=== PATIENT | female | born 1960 ===

== ENCOUNTER 2016-09-29 08:50 | Emergency (ER) | payer OTHER ==
[2016-09-29 08:54] VITALS: BMI 34.5
[2016-09-29 08:59] VITALS: BP 140/83; PULSE 86; RESP 18; TEMP 98.3; O2SAT 99
--- NOTE | 2016-09-29 10:01 | RAD ---
PROCEDURE: Right Hip Radiographs. HISTORY: r/o fx COMPARISON: None. FINDINGS: BONES: Normal. No fracture. JOINTS: [id number] osteoarthritic changes. SOFT TISSUES: Normal. OTHER FINDINGS: None. IMPRESSION: No evidence of acute fracture or dislocation. [id number] osteoarthritic changes P
--- NOTE | 2016-09-29 10:07 | C.PDOC ---
History Of Present Illness 55 yr old female presents to the ER stating she slipped on something wet 2 days ago at a [employer] and now has pain to the right hip and right knee. Patient states she has been walking with a limp. Denies head injury, LOC, any prior symptoms before falling, nausea, vomiting, back pain, weakness or numbness. Time Seen by Provider: 09/29/16 09:15 Chief Complaint (Nursing): Lower Extremity Problem/Injury History Per: Patient History/Exam Limitations: no limitations Onset/Duration Of Symptoms: Days (2 days ago) Current Symptoms Are (Timing): Still Present Past Medical History Reviewed: Historical Data, Nursing Documentation, Vital Signs Vital Signs: Last Vital Signs Temp 98.3 F 09/29/16 08:57 Pulse 86 09/29/16 08:57 Resp 18 09/29/16 08:57 BP 140/83 09/29/16 08:57 Pulse Ox 99 09/29/16 11:21 - Medical History PMH: HTN Family History: States: No Known Family Hx - Social History Hx Alcohol Use: No Hx Substance Use: No - Immunization History Hx Tetanus Toxoid Vaccination: No Hx Influenza Vaccination: No Hx Pneumococcal Vaccination: No Review Of Systems Except As Marked, All Systems Reviewed And Found Negative. Gastrointestinal: Negative for: Nausea, Vomiting Musculoskeletal: Positive for: Other ((+) Right hip pain. Right knee pain ). Negative for: Back Pain Neurological: Negative for: Weakness, Numbness Physical Exam - Physical Exam Appears: Well, Non-toxic, No Acute Distress Skin: Warm, Dry, No Rash Head: Atraumatic, Normacephalic Oral Mucosa: Moist Neck: Normal, Normal ROM, No Midline Cervical Tenderness, No Paracervical Tenderness, Supple Chest: Symmetrical, No Tenderness Cardiovascular: Rhythm Regular, No Murmur Respiratory: Normal Breath Sounds, No Rales, No Rhonchi, No Stridor, No Wheezing Back: Normal Inspection, No CVA Tenderness Extremity: Normal ROM (Full ROM at the right knee and right hip. ), No Calf Tenderness, Other (Right Hip - Mild tenderness on the lateral aspect. Right Knee - Mild swelling and ecchymosis noted to the medial and anterior aspect of the knee. No pain with valgus stretch.) Pulses: Left Dorsalis Pedis: Normal, Right Dorsalis Pedis: Normal Neurological/Psych: Oriented x3, Normal Speech, Normal Motor, Normal Sensation, Normal Reflexes ED Course And Treatment O2 Sat by Pulse Oximetry: 99 - Other Rad X-Ray - Right Hip X-Ray: Viewed By Me, Read By Radiologist Interpretation: PROCEDURE: Right Hip Radiographs. HISTORY: r/o fx. COMPARISON: None. FINDINGS: BONES: Normal. No fracture. JOINTS: Mild-to- moderate osteoarthritic changes. SOFT TISSUES: Normal. OTHER FINDINGS: None. IMPRESSION: No evidence of acute fracture or dislocation. Mild-to- moderate osteoarthritic changes. X-Ray - Right Knee X-Ray: Viewed By Me, Read By Radiologist Interpretation: PROCEDURE: Right Knee Radiographs. HISTORY: r/o fx. COMPARISON: None. FINDINGS: BONES: Normal. No fracture. JOINTS: Normal. No osteoarthritis. JOINT EFFUSION: None. OTHER FINDINGS: None. IMPRESSION: No evidence of acute fracture or dislocation. Medical Decision Making Medical Decision Making: PLAN: * X-Ray - Right Knee, Right Hip * Motrin PO Disposition - Disposition Referrals: Kwesi Dueñas MD [Staff Provider] - Disposition: HOME/ ROUTINE Disposition Time: 11:00 Condition: GOOD Additional Instructions: Thank you for letting us take care of you today. Your provider was Dr. Wang. You were treated for knee and hip pain. The emergency medical care you received today was directed at your acute symptoms. If you were prescribed any medication, please fill it and take as directed. It may take several days for your symptoms to resolve. Return to the Emergency Department if your symptoms worsen, do not improve, or if you have any other problems. Please contact your doctor or call one of the physicians/clinics you have been referred to that are listed on the Patient Visit Information form that is included in your discharge packet. Bring any paperwork you were given at discharge with you along with any medications you are taking to your follow up visit. Our treatment cannot replace ongoing medical care by a primary care provider (PCP) outside of the emergency department. Thank you for allowing the [facility] team to be part of your care today. Follow up with your doctor in 3-4 days. Apply ice to the affective areas for the next 2-3 days and take ibuprofen as needed. Instructions: Knee Pain (ED), Hip Pain (ED) - Clinical Impression Clinical Impression: Knee contusion, Hip pain - Scribe Statement The provider has reviewed the documentation as recorded by the Scribe Syl Ashley Provider Attestation: All medical record entries made by the Inocencio were at my direction and personally dictated by me. I have reviewed the chart and agree that the record accurately reflects my personal performance of the history, physical exam, medical decision making, and the department course for this patient. I have also personally directed, reviewed, and agree with the discharge instructions and disposition.
--- NOTE | 2016-09-29 11:09 | RAD ---
PROCEDURE: Right Knee Radiographs. HISTORY: r/o fx COMPARISON: None. FINDINGS: BONES: Normal. No fracture. JOINTS: Normal. No osteoarthritis. JOINT EFFUSION: None. OTHER FINDINGS: None. IMPRESSION: No evidence of acute fracture or dislocation.
== END 2016-09-29 11:24 | disposition home or self-care (01) ==
LOC: C.ER 08:50
DX: S80.01XA Contusion of right knee, initial encounter (principal); M25.551 Pain in right hip; W01.0XXA Fall on same level from slipping, tripping and stumbling without subsequent striking against object, initial encounter; Y93.89 Activity, other specified; Y92.512 Supermarket, store or market as the place of occurrence of the external cause

== ENCOUNTER 2017-01-21 20:32 | Emergency (ER) | payer OTHER ==
[2017-01-21 20:33] VITALS: BMI 34.5
[2017-01-21 20:48] VITALS: BP 140/85; RESP 18; TEMP 98.2
--- NOTE | 2017-01-21 21:03 | C.PDOC ---
History Of Present Illness 56 yo female w/PMHx of OA, HTN, DM, come in for evaluation of Right sided lower back pain radiating down to Right thigh gradually worsen for past month after sustained mechanical fall. Pt reports, " slipped on floor, when twisted by [facility] Pt admits, was seen here in ED after the accident when xray of Right hip and knee performed and was normal. Pt describes pain as constant, aching and worse with movement. Otherwise, pt denies fever, chills, abd. pain, N/V, denies UTI sx, saddle anesthesia, incontinence, denies weakness, deformity, sensory or vascular deficits to B?L LEs. Ambulate to ED for evaluation, not in any apparent distress. Time Seen by Provider: 01/21/17 20:51 Chief Complaint (Nursing): Lower Extremity Problem/Injury History Per: Patient Onset/Duration Of Symptoms: Gradual Past Medical History Reviewed: Historical Data, Nursing Documentation, Vital Signs Vital Signs: Last Vital Signs Temp 98.2 F 01/21/17 20:45 Pulse 102 H 01/21/17 20:45 Resp 18 01/21/17 20:45 BP 140/85 01/21/17 20:45 Pulse Ox 97 01/21/17 21:48 - Medical History PMH: HTN Denies: Chronic Kidney Disease Surgical History: Cholecystectomy Family History: States: No Known Family Hx - Social History Hx Alcohol Use: No Hx Substance Use: No - Immunization History Hx Tetanus Toxoid Vaccination: No Hx Influenza Vaccination: No Hx Pneumococcal Vaccination: No Review Of Systems Except As Marked, All Systems Reviewed And Found Negative. Constitutional: Negative for: Fever, Chills Eyes: Negative for: Vision Change ENT: Negative for: Throat Pain Cardiovascular: Negative for: Chest Pain Gastrointestinal: Negative for: Nausea, Vomiting, Abdominal Pain, Diarrhea Genitourinary: Negative for: Dysuria, Frequency, Incontinence Musculoskeletal: Positive for: Back Pain. Negative for: Neck Pain Neurological: Negative for: Weakness, Numbness, Altered Mental Status, Headache , Dizziness Physical Exam - Physical Exam Appears: Well, Non-toxic, No Acute Distress Skin: Normal Color, Warm, Dry, No Rash, No Ecchymosis Eye(s): bilateral: PERRL Throat: No Erythema, No Exudate, No Drooling Neck: Supple Cardiovascular: Rhythm Regular Respiratory: No Decreased Breath Sounds, No Stridor, No Wheezing Gastrointestinal/Abdominal: Soft, No Tenderness, No Distention, No Guarding, No Rebound Back: No CVA Tenderness, No Vertebral Tenderness, Decreased ROM (L-spine due to pain), Paraspinal Tenderness (Right sided lumbar extend down to Right gluteus, no palpable deformity, no skin changes.) Extremity: Normal ROM, No Tenderness, No Pedal Edema, No Deformity, No Swelling Neurological/Psych: Oriented x3, Normal Speech, Normal Motor, Normal Sensation, Normal Reflexes ED Course And Treatment O2 Sat by Pulse Oximetry: 97 (RA) Pulse Ox Interpretation: Normal - CT Scan/US CT - Lumbar Spine Other Rad Studies (CT/US): Read By Radiologist, Radiology Report Reviewed CT/US Interpretation: EXAM: CT Lumbar Spine Without Intravenous Contrast. CLINICAL HISTORY: 56 years old, female; Pain; Low back pain; Additional info: Right back, right hip pain. TECHNIQUE: Axial computed tomography images of the lumbar spine without intravenous contrast. All CT scans. at this facility use one or more dose reduction techniques, viz.: automated exposure control; ma/ kV. adjustment per patient size (including targeted exams where dose is matched to indication; i.e. head);. or iterative reconstruction technique. Coronal and sagittal reformatted images were created and reviewed. COMPARISON: No relevant prior studies available. FINDINGS: Vertebrae: No acute fracture. Facet osteoarthrosis within lower lumbar spine. Discs/spinal canal/ neural foramina: No significant spinal stenosis. Soft tissues: Unremarkable. Gallbladder and bile ducts: Cholecystectomy. Adrenals: Mild hypertrophy of adrenal glands. Kidneys and ureters: Tiny RIGHT renal AML. Hypodense lesion with tiny peripheral calcification. within LEFT kidney, incompletely imaged. Reproductive: Hysterectomy. Other findings: Bone islands. IMPRESSION: 1. No fracture. If back pain persists, consider MRI for further evaluation. 2. LEFT kidney lesion, incompletely evaluated. Suggest nonemergent followup. 3. Incidental/non-acute findings are described above. Progress Note: On re-evaluation, pt is AAO#3, not in any apparent distress. PulseOx 99% RA. Head: AT/NC. Lungs: CTA B/L, BS equal B/L. ABd: Benign, (-) guarding, (-) rebound. Back: (-) CVA tenderness. Neurologicaly intact. Imaging review and appears without acute abnormalities. Pt has clinical findings c/w lumbar radiculopathy. Pt advised. ref. to F/u with PMD in 1-2 days for re-evaluation. Return to ED if any worsening or new changes. Disposition Counseled Patient/Family Regarding: Studies Performed, Diagnosis, Need For Followup, Rx Given - Disposition Referrals: Kwesi Dueñas MD [Staff Provider] - Disposition: HOME/ ROUTINE Disposition Time: 21:52 Condition: STABLE Additional Instructions: Avoid heavy lifting, bending forward, any physical activity for 1 week take pain medication as need for pain Follow up with PMD in 2-3 days for re-evaluation. Return to ED if any new changes. Prescriptions: diaZEpam [Valium] 5 mg PO HS #5 tab Methocarbamol [Robaxin] 500 mg PO TID #14 tab traMADol [Ultram] 50 mg PO TID #7 tab Instructions: Lumbar Radiculopathy (ED) Forms: [employer] (Honduran) - Clinical Impression Clinical Impression: Lumbar radiculopathy
[2017-01-21 21:23] LABS: RBC URINE 2 /hpf (0-3); URINE BACTERIA RARE (<OCC); URINE BILIRUBIN NEGATIVE (NEGATIVE); URINE BLOOD NEGATIVE (NEGATIVE); URINE COLOR Yellow (YELLOW); URINE GLUCOSE (UA) 3+ mg/dL (Normal); URINE KETONE NEGATIVE (NEGATIVE); URINE LEUKOCYTE ESTERASE NEG Leu/uL (Negative); URINE PROTEIN NEGATIVE (NEGATIVE); URINE UROBILINOGEN NORMAL mg/dL (0.2-1.0); WBC URINE 3 /hpf (0-5)
--- NOTE | 2017-01-21 21:42 | CT ---
EXAM: CT Lumbar Spine Without Intravenous Contrast CLINICAL HISTORY: 56 years old, female; Pain; Low back pain; Additional info: Right back, right hip pain TECHNIQUE: Axial computed tomography images of the lumbar spine without intravenous contrast. All CT scans at this facility use one or more dose reduction techniques, viz.: automated exposure control; ma/kV adjustment per patient size (including targeted exams where dose is matched to indication; i.e. head); or iterative reconstruction technique. Coronal and sagittal reformatted images were created and reviewed. COMPARISON: No relevant prior studies available. FINDINGS: Vertebrae: No acute fracture. Facet osteoarthrosis within lower lumbar spine. Discs/spinal canal/neural foramina: No significant spinal stenosis. Soft tissues: Unremarkable. Gallbladder and bile ducts: Cholecystectomy. Adrenals: Mild hypertrophy of adrenal glands. Kidneys and ureters: Tiny RIGHT renal AML. Hypodense lesion with tiny peripheral calcification within LEFT kidney, incompletely imaged. Reproductive: Hysterectomy. Other findings: Bone islands. IMPRESSION: 1. No fracture. If back pain persists, consider MRI for further evaluation. 2. LEFT kidney lesion, incompletely evaluated. Suggest nonemergent followup. 3. Incidental/non-acute findings are described above.
[2017-01-21 22:09] VITALS: PULSE 86; O2SAT 99
== END 2017-01-21 22:09 | disposition home or self-care (01) ==
LOC: C.ER 20:32
DX: M54.16 Radiculopathy, lumbar region (principal)

== ENCOUNTER 2017-07-11 14:22 | Inpatient (IN) | payer OTHER ==
[2017-07-11 14:22] VITALS: BMI 34.5
[2017-07-11] MEDS ORDERED: Albuterol-Ipratrop 3 mg / 0.5 (3 ml) UD INH STA (17:33)
--- NOTE | 2017-07-11 17:48 | C.PDOC ---
History Of Present Illness 56 y/o female with history of DM presents to ED with complaints of cough, sore throat, fever and body aches for 5 days. Patient denies recent travel, sick contacts, n/v/d or any other complaints at this time. Time Seen by Provider: 07/11/17 17:26 Chief Complaint (Nursing): Flu-like Symptoms History Per: Patient History/Exam Limitations: no limitations Onset/Duration Of Symptoms: Days Current Symptoms Are (Timing): Still Present Associated Symptoms: Cough Past Medical History Reviewed: Historical Data, Nursing Documentation, Vital Signs Vital Signs: Last Vital Signs Temp 98.7 F 07/11/17 21:51 Pulse 98 H 07/11/17 21:51 Resp 20 07/11/17 21:51 BP 126/60 07/11/17 21:51 Pulse Ox 95 07/11/17 23:02 - Medical History PMH: HTN Surgical History: Cholecystectomy Family History: States: No Known Family Hx - Social History Hx Alcohol Use: No Hx Substance Use: No - Immunization History Hx Tetanus Toxoid Vaccination: No Hx Influenza Vaccination: No Hx Pneumococcal Vaccination: No Review Of Systems Constitutional: Positive for: Fever ENT: Positive for: Throat Pain Cardiovascular: Negative for: Chest Pain Respiratory: Positive for: Cough. Negative for: Shortness of Breath Gastrointestinal: Negative for: Nausea, Vomiting Physical Exam - Physical Exam Additional Physical Exam Comments: Constitutional: No acute distress. WDWN. Head: Normocephalic. Atraumatic. Eyes: PERRL. EOMI. ENT: Moist mucous membranes. Mild pharynx erythema Neck: Supple. Cardiovascular: Regular rhythm. Tachycardic Chest: No tenderness. Respiratory: Course sounds bilaterally, no wheezing. GI: Soft. Nontender. Nondistended. No rebound. No guarding. Skin: No rash. Neurologic: Alert, no focal deficit. ED Course And Treatment - Laboratory Results Result Diagrams: 07/11/17 19:31 07/11/17 19:31 O2 Sat by Pulse Oximetry: 95 (RA) Pulse Ox Interpretation: Normal Medical Decision Making Medical Decision Making: discussed with Dr Marshall after xray resulted,will admit for pneumonia; labs, cultures, flu swab, iv antibiotics ordered. 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 - Scribe Statement The provider has reviewed the documentation as recorded by the Rafaelibmargaret Hook All medical record entries made by the Inocencio were at my direction and personally dictated by me. I have reviewed the chart and agree that the record accurately reflects my personal performance of the history, physical exam, medical decision making, and the department course for this patient. I have also personally directed, reviewed, and agree with the discharge instructions and disposition.
--- NOTE | 2017-07-11 18:19 | RAD ---
HISTORY: cough fever hx asthma COMPARISON: None available. TECHNIQUE: Chest PA and lateral FINDINGS: Examination limited by habitus. LUNGS: Patchy opacities at the left upper and lower lobes consistent with pneumonia. Please note that chest x-ray has limited sensitivity for the detection of pulmonary masses. PLEURA: No significant pleural effusion identified. No definite pneumothorax . CARDIOVASCULAR: Heart size appears within normal limits. OSSEOUS STRUCTURES: Degenerative changes of the spine. VISUALIZED UPPER ABDOMEN: Unremarkable. OTHER FINDINGS: None. IMPRESSION: Patchy opacities at the left upper and lower lobe consistent with pneumonia. Recommend follow-up to ensure complete resolution.
[2017-07-11] MEDS ORDERED: cefTRIAXone IV 1 gm in Dextros 50 ML IV STA (18:42)
[2017-07-11] MEDS ORDERED: Azithromycin 500mg/250ML NS 500 MG/250 ML BAG IV ONE (19:00)
[2017-07-11] MEDS ORDERED: cefTRIAXone IV 1 gm in Dextros 50 ML IVPB ONE (19:33)
[2017-07-11 19:36] LABS: BASO % 0.5 % (0.0-2.0); EOS % 0.5 % (0.0-4.0); HEMOGLOBIN 14.3 g/dL (11.0-16.0); LYMPH # 1.6 K/uL (1.0-4.3); LYMPH % 29.3 % (20.0-40.0); MEAN CELL VOLUME 84.8 fL (81.0-99.0); MEAN CORPUSCULAR HEMOGLOBIN 28.5 pg (27.0-31.0); MEAN CORPUSCULAR HGB CONC 33.6 g/dL (33.0-37.0); MEAN PLATELET VOLUME 9.2 fL (7.2-11.7); MONO # 0.7 K/uL (0.0-0.8); MONO % 12.4 % (0.0-10.0); NEUT # 3.2 K/uL (1.8-7.0); NEUT % 57.3 % (50.0-75.0); RBC 5.01 Mil/uL (3.80-5.20); RED CELL DISTRIBUTION WIDTH 12.8 % (11.5-14.5); WHITE BLOOD COUNT 5.6 K/uL (4.8-10.8)
[2017-07-11 19:48] LABS: CALCIUM 8.7 mg/dl (8.6-10.4); GFR AFRICAN-AMERICAN > 60; GFR NON-AFRICAN AMERICAN > 60
[2017-07-11 19:50] LABS: ALBUMIN 3.4 g/dL (3.5-5.0); ALT/SGPT 23 U/L (9-52); AST/SGOT 25 U/L (14-36); BLOOD UREA NITROGEN 15 mg/dL (7-17)
--- NOTE | 2017-07-11 19:51 | CP.PCM.HP ---
History of Present Illness - History of Present Illness History of Present Illness: Chief complaints: Fever History of present illness: 56-year-old female with a history of diabetes hypertension and psoriasis came to the emergency room with the chills and fever. Patient started having the symptoms worsening for almost 3 days, associated with a high fever, cough noted, with mucus production. Just a congestion noted, with mucus production, yellowish discoloration. Patient came to the ED because of the worsening symptoms of respiratory disturbances, and able to sleep well. Past medical history: Diabetes hypertension psoriasis, lower back pain Surgical history: None Allergies no known drug allergy family history: The parents mother is alive, hypertension. Sister with diabetes. Social history: Nonsmoker. Denies any alcohol. Medications: Metformin, Glucotrol, Januvia, losartan hydrochlorothiazide Review of system: Headache noted, cough noted, fever, chills, body shop worker relates to noted. Cough with mucus production. Abdominal pain negative, no nausea vomiting no chest pain Vital signs reviewed No neck vein distention noted Chest congestion bilaterally noted CVS regular heart sound, no murmur noted Abdomen soft, nontender. Extremities no pedal edema CONSULTING PROPERTY MANAGER alert awake oriented -3, no functional neurological deficit CBC currently nonspecific. Nasal swab for influenza and other labs are pending Chest x-ray showing infiltrative changes in the left lung Assessment and recommended impression: 56 female with history of diabetes hypertension hypercholesterolemia uncontrolled came to the emergency room with the acute febrile illness. Looks like influenza, complicated with pneumonia. Patient related hospitalization. Anti-influenza medication. start empirical antibiotic. Oxygenation. Bronchodilators. And will follow the patient. Glucose control, DVT prophylaxis, PPI Present on Admission - Present on Admission Any Indicators Present on Admission: No History of DVT/PE: No History of Uncontrolled Diabetes: No Urinary Catheter: No Decubitus Ulcer Present: No Past Patient History - Infectious Disease Hx of Infectious Diseases: None - Past Social History Smoking Status: Never Smoked - CARDIAC Hx Hypertension: Yes - PULMONARY Hx Respiratory Disorders: No - NEUROLOGICAL Hx Neurological Disorder: No - HEENT Hx HEENT Problems: No - RENAL Hx Chronic Kidney Disease: No - ENDOCRINE/METABOLIC Hx Endocrine Disorders: Yes Hx Diabetes Mellitus Type 2: Yes - HEMATOLOGICAL/ONCOLOGICAL Hx Blood Disorders: No - INTEGUMENTARY Hx Dermatological Problems: No - MUSCULOSKELETAL/RHEUMATOLOGICAL Hx Musculoskeletal Disorders: Yes Hx Falls: Yes - GASTROINTESTINAL Hx Gastrointestinal Disorders: No - GENITOURINARY/GYNECOLOGICAL Hx Genitourinary Disorders: No - PSYCHIATRIC Hx Substance Use: No - SURGICAL HISTORY Hx Cholecystectomy: Yes - ANESTHESIA Hx Anesthesia: Yes Hx Anesthesia Reactions: No Meds Allergies/Adverse Reactions: Allergies Allergy/AdvReac Type Severity Reaction Status Date / Time corn meal Allergy Severe ANAPHYLAXIS Uncoded 07/11/17 15:02 Results - Vital Signs Recent Vital Signs: Last Vital Signs Temp 101.0 F H 07/11/17 14:59 Pulse 103 H 07/11/17 14:59 Resp 20 07/11/17 14:59 BP 181/91 H 07/11/17 14:59 Pulse Ox 95 07/11/17 18:47 - Labs Result Diagrams: 07/11/17 19:31 07/11/17 19:31 Labs: Laboratory Results - last 24 hr 07/11/17 07/11/17 19:31 19:31 WBC 5.6 RBC 5.01 Hgb 14.3 Hct 42.5 MCV 84.8 MCH 28.5 MCHC 33.6 RDW 12.8 Plt Count 245 MPV 9.2 Neut % (Auto) 57.3 Lymph % (Auto) 29.3 [place] % (Auto) 12.4 H Eos % (Auto) 0.5 Baso % (Auto) 0.5 Neut # (Auto) 3.2 Lymph # (Auto) 1.6 [place] # (Auto) 0.7 Eos # (Auto) 0.0 Baso # (Auto) 0.0 Sodium 131 L Potassium 4.5 Chloride 97 L Carbon Dioxide 28 Anion Gap 10 BUN 15 Creatinine 0.4 L Est GFR ( Amer) > 60 Est GFR (Non-Af Amer) > 60 Random Glucose 205 H Calcium 8.7 Total Bilirubin 0.6 AST 25 ALT 23 Alkaline Phosphatase 63 Total Protein 6.9 Albumin 3.4 L Globulin 3.5 Albumin/Globulin Ratio 1.0
[2017-07-11 21:52] VITALS: RESP 20
[2017-07-12] MEDS: Promethazine 6.25 MG/5 ML CUP PO PRN ×2 (06:13→14:41)
[2017-07-12] MEDS: (Novolin R) Insulin Human Regular 100 units/ml vial SC SCH ×4 (08:30→21:46)
[2017-07-12] MEDS: cefTRIAXone IV 1 gm in Dextros 50 ML IVPB SCH (09:59)
[2017-07-12] MEDS: Azithromycin 500 MG in Sodium Chloride 0.9% 250 ML IVPB SCH (11:00)
--- NOTE | 2017-07-12 11:21 | CT ---
CT chest without IV contrast Indication: Pneumonia Technique: Contiguous axial images were obtained through the chest without intravenous contrast enhancement. Sagittal and coronal reconstructions were generated and reviewed. This CT exam was performed using 1 or more of the following dose reduction techniques: Automated exposure control, adjustment of the MAA and/or kV according to patient size, and/or use of iterative reconstruction technique. Radiation dose (DLP): 607.28 MGy-cm. Comparison: Chest x-ray performed 07/11/17 Findings: Visualized portions of the inferior thyroid gland appear unremarkable. The mediastinal and hilar vascular structures appear within normal limits. The heart appears within normal limits of size. Trace pericardial effusion. Patchy and nodular infiltrate throughout the left mariola thorax appears compatible with pneumonia. The right mariola thorax appears clear. No pleural effusion. No pneumothorax. Limited visualization of the noncontrast upper abdomen: Cholecystectomy. 3.4 cm low-density lesion involving left upper pole kidney measuring approximately 10 HU, likely cyst. No acute osseous abnormality is detected. Impression: Patchy and nodular infiltrate throughout the left mariola thorax appears compatible with pneumonia. The right mariola thorax appears clear. Recommend follow-up upon completion of treatment for acute symptoms in order to assess for complete resolution. Limited visualization of the noncontrast upper abdomen: Cholecystectomy. 3.4 cm low-density lesion involving left upper pole kidney measuring approximately 10 HU, likely cyst. Additional findings as above.
--- NOTE | 2017-07-12 21:19 | CP.PCM.PN ---
Subjective - Date & Time of Evaluation Date of Evaluation: 07/12/17 Time of Evaluation: 21:19 - Subjective Subjective: The patient awakened having less cough. No wheezing noted. Slightly feeling better. Afebrile. Low-grade temperature Vital signs temperature 99.2. Blood pressure is stable, oxygen saturation is 94% in room air. Chest minimal bilateral wheezing noted regular heart sounds nontender abdomen no pedal edema CT of the chest showing evidence of left lower lung pneumonia, patchy infiltrate noted, bronchopneumonia, atypical likely. Assessment and recommendation: 56-year-old female with a history of diabetes hypertension hypothyroidism and psoriasis admitted with acute pneumonia, viral pneumonia Cannot be ruled out. Mycoplasma pneumonia likely. Workup pending. On Rocephin and Zithromax. The patient is having less likely influenza pneumonia, but in spite of that they will continue the Tamiflu. Response may not be adequate. Objective - Vital Signs/Intake and Output Vital Signs (last 24 hours): Temp Pulse Resp BP Pulse Ox 98.7 F 94 H 20 137/82 95 07/12/17 16:00 07/12/17 16:00 07/12/17 16:00 07/12/17 16:00 07/12/17 16:00 Intake and Output: 07/12/17 07/13/17 18:59 06:59 Intake Total 780 Balance 780 - Medications Medications: Current Medications Glipizide (Glucotrol) 5 mg PO BID [facility] Last Admin: 07/12/17 09:58 Dose: 5 mg Ceftriaxone Sodium (Rocephin Iv 1 Gm Duplex) 50 mls @ 100 mls/hr IVPB DAILY [facility] Last Admin: 07/12/17 09:59 Dose: 100 mls/hr Azithromycin 500 mg/ Sodium (Chloride) 250 mls @ 250 mls/hr IVPB DAILY [facility] Last Admin: 07/12/17 11:00 Dose: 250 mls/hr Insulin Human Regular (Novolin R) 0 unit SC ACHS [facility] PRN Reason: Protocol Last Admin: 07/12/17 16:30 Dose: Not Given Metformin HCl (Glucophage) 500 mg PO BID [facility] Last Admin: 07/12/17 09:58 Dose: 500 mg Oseltamivir Phosphate (Tamiflu Cap) 75 mg PO BID [facility] Stop: 07/17/17 21:18 Promethazine HCl (Phenergan Syrup) 6.25 mg PO Q8 PRN PRN Reason: Cough Last Admin: 07/12/17 14:41 Dose: 6.25 mg Sitagliptin Phosphate (Januvia) 50 mg PO DAILY [facility] Last Admin: 07/12/17 09:58 Dose: 50 mg - Labs Labs: 07/11/17 19:31 07/11/17 19:31
[2017-07-13 07:15] LABS: BASO % 0.7 % (0.0-2.0); EOS # 0.2 K/uL (0.0-0.7); EOS % 2.8 % (0.0-4.0); HEMOGLOBIN 14.9 g/dL (11.0-16.0); LYMPH # 2.5 K/uL (1.0-4.3); LYMPH % 45.4 % (20.0-40.0); MEAN CELL VOLUME 85.3 fL (81.0-99.0); MEAN PLATELET VOLUME 9.3 fL (7.2-11.7); MONO # 0.6 K/uL (0.0-0.8); MONO % 10.5 % (0.0-10.0); NEUT # 2.2 K/uL (1.8-7.0); NEUT % 40.6 % (50.0-75.0); RBC 5.15 Mil/uL (3.80-5.20); RED CELL DISTRIBUTION WIDTH 13.1 % (11.5-14.5); WHITE BLOOD COUNT 5.5 K/uL (4.8-10.8)
[2017-07-13 07:36] LABS: ALBUMIN 3.4 g/dL (3.5-5.0); ALT/SGPT 20 U/L (9-52); AST/SGOT 19 U/L (14-36); BLOOD UREA NITROGEN 19 mg/dL (7-17); GFR AFRICAN-AMERICAN > 60; GFR NON-AFRICAN AMERICAN > 60
[2017-07-13] MEDS: (Novolin R) Insulin Human Regular 100 units/ml vial SC SCH ×4 (08:30→22:07)
[2017-07-13] MEDS: cefTRIAXone IV 1 gm in Dextros 50 ML IVPB SCH (10:02)
[2017-07-13] MEDS: Azithromycin 500 MG in Sodium Chloride 0.9% 250 ML IVPB SCH (10:34)
[2017-07-13] MEDS: Promethazine 6.25 MG/5 ML CUP PO PRN (12:59)
--- NOTE | 2017-07-13 23:22 | CP.PCM.PN ---
Subjective - Date & Time of Evaluation Date of Evaluation: 07/13/17 Time of Evaluation: 23:21 - Subjective Subjective: Patient today feeling better. Cough is still noted, but less wheezing noted. No fever. Blood sugar is stable Vital signs reviewed No neck vein distention noted Left lower lung rales noted CVS regular heart sound, no murmur noted Abdomen soft, nontender. 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 Patient's blood looks reviewed WBC is normal urinary analysis, BUN/creatinine is normal Mycoplasma is negative. Assessment and recommended impression: 56 female with history of diabetes hypertension hypothyroidism admitted with acute pneumonia. Currently doing well. Monitor the pulse ox after ambulation, oxygenation is better patient can be discharged home tomorrow. We'll continue Augmentin 875 mg, Zithromax, for 5 more days. Diet control, glucose monitoring. Objective - Vital Signs/Intake and Output Vital Signs (last 24 hours): Temp Pulse Resp BP Pulse Ox 98.1 F 106 H 20 140/83 95 07/13/17 15:10 07/13/17 15:10 07/13/17 15:10 07/13/17 15:10 07/13/17 15:10 Intake and Output: 07/13/17 07/14/17 18:59 06:59 Intake Total 1020 Balance 1020 - Medications Medications: Current Medications Glipizide (Glucotrol) 5 mg PO BID [facility] Last Admin: 07/13/17 17:39 Dose: 5 mg Ceftriaxone Sodium (Rocephin Iv 1 Gm Duplex) 50 mls @ 100 mls/hr IVPB DAILY [facility] Last Admin: 07/13/17 10:02 Dose: 100 mls/hr Azithromycin 500 mg/ Sodium (Chloride) 250 mls @ 250 mls/hr IVPB DAILY [facility] Last Admin: 07/13/17 10:34 Dose: 250 mls/hr Insulin Human Regular (Novolin R) 0 unit SC ACHS [facility] PRN Reason: Protocol Last Admin: 07/13/17 22:07 Dose: Not Given Metformin HCl (Glucophage) 500 mg PO BID [facility] Last Admin: 07/13/17 17:39 Dose: 500 mg Oseltamivir Phosphate (Tamiflu Cap) 75 mg PO BID [facility] Stop: 07/17/17 21:18 Last Admin: 07/13/17 17:40 Dose: 75 mg Promethazine HCl (Phenergan Syrup) 6.25 mg PO Q8 PRN PRN Reason: Cough Last Admin: 07/13/17 12:59 Dose: 6.25 mg Sitagliptin Phosphate (Januvia) 50 mg PO DAILY [facility] Last Admin: 07/13/17 09:42 Dose: 50 mg - Labs Labs: 07/13/17 06:49 07/13/17 06:49
[2017-07-14] MEDS: (Novolin R) Insulin Human Regular 100 units/ml vial SC SCH ×3 (08:00→16:30)
[2017-07-14 08:24] VITALS: BP 135/85; PULSE 90; TEMP 98.4; O2SAT 96
[2017-07-14] MEDS: Azithromycin 500 MG in Sodium Chloride 0.9% 250 ML IVPB SCH (10:17)
[2017-07-14] MEDS: cefTRIAXone IV 1 gm in Dextros 50 ML IVPB SCH (10:18)
[2017-07-14] MEDS: Promethazine 6.25 MG/5 ML CUP PO PRN (10:39)
--- NOTE | 2017-07-14 18:06 | CP.PCM.PN ---
Subjective - Date & Time of Evaluation Date of Evaluation: 07/14/17 Time of Evaluation: 11:00 - Subjective Subjective: Alert, orientedx3, no sob or chest pains. Objective - Vital Signs/Intake and Output Vital Signs (last 24 hours): Temp Pulse Resp BP Pulse Ox 98.4 F 90 20 135/85 96 07/14/17 08:22 07/14/17 08:22 07/14/17 08:22 07/14/17 08:22 07/14/17 08:22 Intake and Output: 07/14/17 07/14/17 06:59 18:59 Intake Total 300 480 Balance 300 480 - Labs Labs: 07/13/17 06:49 07/13/17 06:49 Assessment and Plan - Assessment and Plan (Free Text) Assessment: Patient admitted with pneumonia seen and examined. No sob or cough today. Ambulating well , oxygen saturation at 97% on room air. Discussed with DR Dueñas, plan to discharge home on augmentin and zithomax. Advised to follow up in the office in 1 week. No acute distress.
--- NOTE | 2017-07-14 21:44 | CP.PCM.DIS ---
Provider - Provider Date of Admission: 07/11/17 20:02 Attending physician: Kwesi Dueñas MD Time Spent in preparation of Discharge (in minutes): 45 Hospital Course - Lab Results Lab Results: Micro Results 07/11/17 19:20 Blood Blood Culture - Preliminary NO GROWTH AFTER 3 DAYS 07/11/17 19:00 Blood Blood Culture - Preliminary NO GROWTH AFTER 3 DAYS 07/13/17 Unknown Sputum Gram Stain - Final Most Recent Lab Values WBC 5.5 K/uL (4.8-10.8) 07/13/17 06:49 RBC 5.15 Mil/uL (3.80-5.20) 07/13/17 06:49 Hgb 14.9 g/dL (11.0-16.0) 07/13/17 06:49 Hct 43.9 % (34.0-47.0) 07/13/17 06:49 MCV 85.3 fL (81.0-99.0) 07/13/17 06:49 MCH 29.0 pg (27.0-31.0) 07/13/17 06:49 MCHC 34.0 g/dL (33.0-37.0) 07/13/17 06:49 RDW 13.1 % (11.5-14.5) 07/13/17 06:49 Plt Count 264 K/uL (130-400) 07/13/17 06:49 MPV 9.3 fL (7.2-11.7) 07/13/17 06:49 Neut % (Auto) 40.6 % (50.0-75.0) L 07/13/17 06:49 Lymph % (Auto) 45.4 % (20.0-40.0) H 07/13/17 06:49 [place] % (Auto) 10.5 % (0.0-10.0) H 07/13/17 06:49 Eos % (Auto) 2.8 % (0.0-4.0) 07/13/17 06:49 Baso % (Auto) 0.7 % (0.0-2.0) 07/13/17 06:49 Neut # (Auto) 2.2 K/uL (1.8-7.0) 07/13/17 06:49 Lymph # (Auto) 2.5 K/uL (1.0-4.3) 07/13/17 06:49 [place] # (Auto) 0.6 K/uL (0.0-0.8) 07/13/17 06:49 Eos # (Auto) 0.2 K/uL (0.0-0.7) 07/13/17 06:49 Baso # (Auto) 0.0 K/uL (0.0-0.2) 07/13/17 06:49 Sodium 135 mmol/L (132-148) 07/13/17 06:49 Potassium 4.0 mmol/L (3.6-5.2) 07/13/17 06:49 Chloride 98 mmol/L (98-107) 07/13/17 06:49 Carbon Dioxide 28 mmol/L (22-30) 07/13/17 06:49 Anion Gap 13 (10-20) 07/13/17 06:49 BUN 19 mg/dL (7-17) H 07/13/17 06:49 Creatinine 0.5 mg/dL (0.7-1.2) L 07/13/17 06:49 Est GFR ( Amer) > 60 07/13/17 06:49 Est GFR (Non-Af Amer) > 60 07/13/17 06:49 POC Glucose (mg/dL) 187 mg/dL (65-110) H 07/14/17 16:32 Random Glucose 187 mg/dL (65-105) H 07/13/17 06:49 Calcium 9.0 mg/dl (8.6-10.4) 07/13/17 06:49 Total Bilirubin 0.2 mg/dL (0.2-1.3) 07/13/17 06:49 AST 19 U/L (14-36) 07/13/17 06:49 ALT 20 U/L (9-52) 07/13/17 06:49 Alkaline Phosphatase 79 U/L (38-126) 07/13/17 06:49 Total Protein 6.7 g/dL (6.3-8.3) 07/13/17 06:49 Albumin 3.4 g/dL (3.5-5.0) L 07/13/17 06:49 Globulin 3.3 gm/dL (2.2-3.9) 07/13/17 06:49 Albumin/Globulin Ratio 1.0 (1.0-2.1) 07/13/17 06:49 Influenza Typ A,B (EIA) Negative for flu a/b (NEGATIVE) 07/11/17 20:01 Mycoplasma pneumon IgM Negative (NEGATIVE) 07/13/17 06:49 - Hospital Course Hospital Course: Chief complaints: Fever History of present illness: 56-year-old female with a history of diabetes hypertension and psoriasis came to the emergency room with the chills and fever. Patient started having the symptoms worsening for almost 3 days, associated with a high fever, cough noted, with mucus production. Just a congestion noted, with mucus production, yellowish discoloration. Patient came to the ED because of the worsening symptoms of respiratory disturbances, and able to sleep well. Past medical history: Diabetes hypertension psoriasis, lower back pain Surgical history: None Allergies no known drug allergy family history: The parents mother is alive, hypertension. Sister with diabetes. Social history: Nonsmoker. Denies any alcohol. Medications: Metformin, Glucotrol, Januvia, losartan hydrochlorothiazide Review of system: Headache noted, cough noted, fever, chills, body stylist relates to noted. Cough with mucus production. Abdominal pain negative, no nausea vomiting no chest pain Vital signs reviewed No neck vein distention noted Chest congestion bilaterally noted CVS regular heart sound, no murmur noted Abdomen soft, nontender. 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 Nasal swab for influenza and other labs are pending Chest x-ray showing infiltrative changes in the left lung Assessment and recommended impression: 56 female with history of diabetes hypertension hypercholesterolemia uncontrolled came to the emergency room with the acute febrile illness. Looks like influenza, complicated with pneumonia. Patient related hospitalization. Anti-influenza medication. start empirical antibiotic. Oxygenation. Bronchodilators. And will follow the patient. Glucose control, DVT prophylaxis, PPI course in the hospital: Patient admitted with acute pneumonia. Likely post influenza. CT of the chest was done, showing evidence of bronchopneumonia. Patient started on Rocephin, Zithromax. clinically patient had improvement. Able to walk without any shortness of breath. Blood glucose level is sligh on the high side. I spoke to the patient last night and also I spoke to the team today. Patient can be discharged h. She will be discharged home today, medications reviewed in Patient will continue5 more days of antibiotic. Will follow the patient Discharge Plan - Discharge Medications Prescriptions: Amoxicillin/Clavulanate [Augmentin 875 MG-125 MG] 1 tab PO Q12H #14 tab Azithromycin [Zithromax] 500 mg PO DAILY #5 tab - Follow Up Plan Condition: STABLE Disposition: HOME/ ROUTINE Instructions: Pneumonia in Adults, Azithromycin (Systemic), Pneumonia, Adult ( [place]), Amoxicillin and Clavulanate Referrals: Kwesi Dueñas MD [Staff Provider] -
== END 2017-07-14 17:40 | disposition home or self-care (01) | DRG 195 ==
LOC: C.ER 14:22 → C.9E 20:02 → C.3T 20:51
PROVIDERS: ADMIT Internal Medicine; ATTEND Internal Medicine
DX: J11.08 Influenza due to unidentified influenza virus with specified pneumonia (principal); E03.9 Hypothyroidism, unspecified; E11.9 Type 2 diabetes mellitus without complications; J18.0 Bronchopneumonia, unspecified organism; I10 Essential (primary) hypertension; L40.9 Psoriasis, unspecified; Z79.4 Long term (current) use of insulin